=== PATIENT | female | born 1975 | race Caucasian/White ===

== ENCOUNTER 2017-08-26 17:22 | Emergency (ER) | payer SELFPAY ==
[2017-08-26] MEDS ORDERED: Methocarbamol TAB* 500 MG PO ONE (17:59)
[2017-08-26] MEDS ORDERED: oxyCODONE/Acetamin 5/325 MG* TAB PO ONE (17:59)
[2017-08-26] MEDS ORDERED: Dexamethasone TAB* 4 MG PO ONE (17:59)
[2017-08-26] MEDS ORDERED: Ketorolac INJ* 60 MG/2 ML VIAL IM ONE (17:59)
--- NOTE | 2017-08-26 18:35 | RAD ---
HISTORY: Fall, neck pain COMPARISONS: August 28, 2013 TECHNIQUE: Multiple contiguous axial CT scans were obtained of the cervical spine without intravenous contrast, with coronal and sagittal multiplanar reformations. FINDINGS: BRAIN: The visualized brain is unremarkable CENTRAL CANAL: Evaluation of the central canal is limited on CT technique; however, there is no obvious canalicular mass or epidural hemorrhage. ALIGNMENT: The alignment is normal, without subluxation or dislocation. VERTEBRAL BODIES: There is anterolateral marginal osteophyte formation at C4-C5 and C5-C6. JOINTS: There is uncovertebral osteophytosis most pronounced at C3-C4, C4-C5, C5-C6. MUSCULATURE: Unremarkable INTERVERTEBRAL DISCS: There is diffuse loss of intervertebral disc height. AXIAL IMAGES: On axial images, there is no osseous central canal stenosis. There is moderate bilateral neural foraminal narrowing at C4-C5 and to a lesser extent at C3-C4 and C5-C6. SOFT TISSUES: The visualized soft tissues of the neck are unremarkable. The prevertebral fat stripe is preserved. OTHER: None. IMPRESSION: DEGENERATIVE DISC DISEASE AND OSTEOARTHRITIS. NO ACUTE OSSEOUS INJURY TO THE CERVICAL SPINE.
--- NOTE | 2017-08-26 18:37 | RAD ---
HISTORY: Fall, back pain COMPARISONS: None TECHNIQUE: Multiple contiguous axial CT scans were obtained of the lumbar spine without intravenous contrast, with coronal and sagittal multiplanar reformations. FINDINGS: SPINAL CANAL: Evaluation of the central canal is limited on CT technique; however, there is no obvious canalicular mass or epidural hemorrhage. ALIGNMENT: The alignment is normal. VERTEBRAL BODIES: There is mild anterolateral marginal osteophyte formation. JOINTS: There is mild facet hypertrophic change. MUSCULATURE: Normal INTERVERTEBRAL DISCS: There is diffuse loss of intervertebral disc height throughout the spine. AXIAL IMAGES: T12-L1: There is no osseous neural foraminal narrowing or central canal stenosis. L1-L2: There is no osseous neural foraminal narrowing or central canal stenosis. L2-L3: There is no osseous neural foraminal narrowing or central canal stenosis. L3-L4: There is a mild disc bulge. There is no osseous neural foraminal area or central canal stenosis. L4-L5: There is broad-based disc bulge. There is bilateral facet hypertrophy. There is moderate bilateral neuroforaminal narrowing. There is mild narrowing of central canal. L5-S1: There is broad-based disc bulge. There is bilateral facet hypertrophy with marginal osteophyte formation at the neural foramina bilaterally. There is mild bilateral neural foraminal narrowing. There is no significant central canal stenosis. SOFT TISSUES: The visualized soft tissues of the abdomen are unremarkable. OTHER: There is osteoarthritis of the SI joints bilaterally. IMPRESSION: DEGENERATIVE DISC DISEASE AND OSTEOARTHRITIS DESCRIBED ABOVE. NO ACUTE OSSEOUS INJURY TO THE LUMBAR SPINE
--- NOTE | 2017-08-26 19:31 | ED ---
Back Pain - HPI Summary HPI Summary: 41F presents with back and neck pain today. She states she tripped and fell down the stairs. She has history of back pain at L4-S1 that is going to have surgery on shortly. She was taking percocet for pain but ran out. She has occasionally numbness and tingling down leg that is unchanged. She denies any saddle parethesia. She denies any loss of bowel or bladder. pain is 10/10. She hit her head but denies any LOC. She denies any nausea or vomiting. She is not on blood thinners. - History of Current Complaint Chief Complaint: EDBackInjuryPain Stated Complaint: BACK PAIN Time Seen by Provider: 08/26/17 17:51 Hx Last Menstrual Period: IUD Pain Intensity: 10 - Allergies/Home Medications Allergies/Adverse Reactions: Allergies Allergy/AdvReac Type Severity Reaction Status Date / Time No Known Allergies Allergy Verified 02/23/16 18:07 PMH/Surg Hx/FS Hx/Imm Hx Endocrine/Hematology History: Denies: Hx Diabetes Cardiovascular History: Denies: Hx Hypertension, Hx Pacemaker/ICD Musculoskeletal History: Reports: Hx Back Problems Sensory History: Denies: Hx Hearing Aid Neurological History: Reports: Other Neuro Impairments/Disorders - HX OF DEGENERATIVE DISK DISEASE Psychiatric History: Denies: Hx Panic Disorder Infectious Disease History: No Infectious Disease History: Denies: Traveled Outside the [place] in Last 30 Days - Family History Known Family History: Positive: Hypertension - Social History Alcohol Use: Occasionally Hx Substance Use: No Substance Use Type: Reports: None Substance Use Comment - Amount & Last Used: N Hx Tobacco Use: Yes Smoking Status (MU): Light Every Day Tobacco Smoker Type: Cigarettes Amount Used/How Often: 1 PPD Review of Systems Negative: Fever Negative: Chest Pain Negative: Shortness Of Breath Positive: Myalgia - back pain Positive: Headache All Other Systems Reviewed And Are Negative: Yes Physical Exam Triage Information Reviewed: Yes Vital Signs On Initial Exam: Initial Vitals Temp Pulse Resp BP Pulse Ox 99.6 F 82 20 138/67 96 08/26/17 17:41 08/26/17 17:41 08/26/17 17:41 08/26/17 17:41 08/26/17 17:41 Vital Signs Reviewed: Yes Appearance: Positive: Pain Distress Skin: Positive: Warm, Dry Head/Face: Positive: Normal Head/Face Inspection Eyes: Positive: Normal, EOMI, CHRISSY, Conjunctiva Clear ENT: Positive: Normal ENT inspection, Pharynx normal, TMs normal Respiratory/Lung Sounds: Positive: Clear to Auscultation, Breath Sounds Present Cardiovascular: Positive: Normal, RRR Abdomen Description: Positive: Nontender, Soft Bowel Sounds: Positive: Present Musculoskeletal: Positive: Other - tenderness cervical and lumbar back, good arm and leg strength, good pulses, capillary refill<2 secs, neg SLR Neurological: Positive: Sensory/Motor Intact, Alert, Oriented to Person Place, Time, CN Intact II-III - Anais Coma Scale Best Eye Response: 4 - Spontaneous Best Motor Response: 6 - Obeys Commands Best Verbal Response: 5 - Oriented Diagnostics - Vital Signs Vital Signs Temp Pulse Resp BP Pulse Ox 08/26/17 19:24 18 08/26/17 17:41 99.6 F 82 20 138/67 96 - Laboratory Lab Statement: Any lab studies that have been ordered have been reviewed, and results considered in the medical decision making process. - CT neck CT Interpretation: No Acute Changes - IMPRESSION: DEGENERATIVE DISC DISEASE AND OSTEOARTHRITIS. NO ACUTE OSSEOUS INJURY TO THE CERVICAL SPINE. CT Interpretation Completed By: Radiologist lumbar CT Interpretation: No Acute Changes - IMPRESSION: DEGENERATIVE DISC DISEASE AND OSTEOARTHRITIS DESCRIBED ABOVE. NO ACUTE OSSEOUS INJURY TO THE LUMBAR SPINE CT Interpretation Completed By: Radiologist Back Pain Course/Dx - Course Course Of Treatment: 41F presents with back and neck pain today. She states she tripped and fell down the stairs. She has history of back pain at L4-S1 that is going to have surgery on shortly. She was taking percocet for pain but ran out. She has occasionally numbness and tingling down leg that is unchanged. She denies any saddle parethesia. She denies any loss of bowel or bladder. pain is 10/10. She hit her head but denies any LOC. She denies any nausea or vomiting. She is not on blood thinners. on exam normal neuro exam. tenderness neck and lower back midline. CT neck and lumbar unchanged. will write for short script for naroctic as patient has appt with primary on . patient understand and agrees with plan. - Diagnoses Differential Diagnosis/HQI/PQRI: Positive: Fracture, Strain, Sprain Provider Diagnoses: Back pain, Fall, Neck pain Discharge - Discharge Plan Condition: Good Disposition: HOME Prescriptions: Cyclobenzaprine TAB* [Flexeril 10 MG TAB*] 10 mg PO TID PRN #9 tab PRN Reason: Pain Oxycodone W/ Acetaminophen [Percocet 7.5-325 mg (NF)] 1 tab PO Q8H PRN #9 tab MDD 3 PRN Reason: Pain Patient Education Materials: Back Pain (ED) Referrals: Eusebio Maxwell [Primary Care Provider] - Additional Instructions: You have been prescribed a short course of pain meds until can be seen by primary Take muscle relaxer three times a day Follow up with primary in 5 days Return to ED if develop any new or worsening symptoms
[2017-08-26 20:25] VITALS: BP 131/65
== END 2017-08-26 20:24 | disposition home or self-care (01) ==
LOC: ED 17:22
DX: M54.9 Dorsalgia, unspecified (principal); M50.30 Other cervical disc degeneration, unspecified cervical region; M47.812 Spondylosis without myelopathy or radiculopathy, cervical region; M51.36 Other intervertebral disc degeneration, lumbar region; M47.816 Spondylosis without myelopathy or radiculopathy, lumbar region; R20.0 Anesthesia of skin; F17.210 Nicotine dependence, cigarettes, uncomplicated
CPT/HCPCS: 72125; 72131; 96372; 99283; A9270-GY; J1885; J8540

== ENCOUNTER 2019-07-06 06:47 | Emergency (ER) | payer BC ==
[2019-07-06 06:51] VITALS: BP 139/102
--- NOTE | 2019-07-06 07:15 | ED ---
Throat Pain/Nasal Congestion - HPI Summary HPI Summary: Pt is a 43 y/o F presenting to the ED for a chief complaint of right ear pain since 07/04/19. Pt rates the right ear pain as 9/10 in severity. Pt reports decreased hearing in the right ear, neck pain, facial pain, and a cough that began on 07/05/19. Pt admits she felt she had a fever. Pt denies any chills, erythema of eyes, drainage from right ear, dental pain, nasal drainage, sore throat, CP, SOB, abdominal pain, N/V, dysuria, hematuria, edema, rash, or dizziness. Pt has taken ibuprofen 800 mg Q4H without relief of ehr symptoms. Pt admits a PMHx of back pain for which she previously took Tramadol. Pt denies any other PMHx. Pt denies taking any medications. Pt admits alcohol and tobacco use. Pt does not have a PCP at this time. - History of Current Complaint Chief Complaint: EDEarPain Hx Obtained From: Patient Onset/Duration: Sudden Onset, Lasting Days, Still Present Severity: Severe - 9/10 Associated Signs And Symptoms: Positive: Negative Cough: Nonproductive - Allergies/Home Medications Allergies/Adverse Reactions: Allergies Allergy/AdvReac Type Severity Reaction Status Date / Time No Known Allergies Allergy Verified 07/06/19 06:53 PMH/Surg Hx/FS Hx/Imm Hx Previously Healthy: Yes Endocrine/Hematology History: Denies: Hx Diabetes Cardiovascular History: Denies: Hx Hypertension, Hx Pacemaker/ICD Musculoskeletal History: Reports: Hx Back Problems Sensory History: Denies: Hx Legally Blind, Hx Deafness, Hx Hearing Aid Opthamlomology History: Denies: Hx Legally Blind EENT History: Denies: Hx Deafness Neurological History: Reports: Other Neuro Impairments/Disorders - HX OF DEGENERATIVE DISK DISEASE Psychiatric History: Denies: Hx Panic Disorder - Surgical History Surgical History: None Surgery Procedure, Year, and Place: None Infectious Disease History: No Infectious Disease History: Denies: Traveled Outside the [place] in Last 30 Days - Family History Known Family History: Positive: Hypertension - Social History Alcohol Use: Occasionally Hx Substance Use: No Substance Use Type: Reports: None Substance Use Comment - Amount & Last Used: None Hx Tobacco Use: Yes Smoking Status (MU): Light Every Day Tobacco Smoker Type: Cigarettes Amount Used/How Often: 1 PPD Review of Systems Positive: Fever - In vitals, 98.1 F. Negative: Chills Negative: Erythema Positive: Other - Negative drainage from right ear; positive right ear pain, decreased hearing from right ear. Negative: Dental Pain, Sore Throat, Nasal Discharge Negative: Chest Pain Positive: Cough. Negative: Shortness Of Breath Negative: Abdominal Pain, Vomiting, Nausea Negative: hematuria Positive: Myalgia - Neck and facial pain. Negative: Edema Negative: Rash Neurological: Other - Negative dizziness All Other Systems Reviewed And Are Negative: Yes Physical Exam - Summary Physical Exam Summary: Constitutional: Well-developed, Well-nourished, Alert. (-) Distressed Skin: Warm, Dry HENT: Normocephalic; Atraumatic. Right TM is bulging and erythematous. Eyes: Conjunctiva normal Neck: Musculoskeletal ROM normal neck. (-) JVD, (-) Stridor, (-) Tracheal deviation Cardio: Rhythm regular, rate normal, Heart sounds normal; Intact distal pulses; The pedal pulses are 2+ and symmetric. Radial pulses are 2+ and symmetric. (-) Murmur Pulmonary/Chest wall: Effort normal. (-) Respiratory distress, (-) Wheezes, (-) Rales Abd: Soft, (-) tenderness, (-) Distension, (-) Guarding, (-) Rebound Musculoskeletal: (-) Edema Lymph: (-) Cervical adenopathy Neuro: Alert, Oriented x3 Psych: Mood and affect Normal Psych: Mood and affect Normal Triage Information Reviewed: Yes Vital Signs On Initial Exam: Initial Vitals Temp Pulse Resp BP Pulse Ox 98.1 F 100 15 139/102 98 07/06/19 06:48 07/06/19 06:48 07/06/19 06:48 07/06/19 06:48 07/06/19 06:48 Vital Signs Reviewed: Yes Procedures - Sedation Patient Received Moderate/Deep Sedation with Procedure: No Diagnostics - Vital Signs Vital Signs Temp Pulse Resp BP Pulse Ox 07/06/19 06:48 98.1 F 100 15 139/102 98 - Laboratory Lab Statement: Any lab studies that have been ordered have been reviewed, and results considered in the medical decision making process. EENT Course/Dx - Course Course Of Treatment: Pt is a 43 y/o F presenting to the ED for a chief complaint of right ear pain since 07/04/19. Pt rates the right ear pain as 9/10 in severity. Pt reports decreased hearing in the right ear, neck pain, facial pain, and a cough that began on 07/05/19. Pt admits she felt she had a fever. Pt denies any chills, erythema of eyes, drainage from right ear, dental pain, nasal drainage, sore throat, CP, SOB, abdominal pain, N/V, dysuria, hematuria, edema, rash, or dizziness. Pt has taken ibuprofen 800 mg Q4H without relief of ehr symptoms. Pt admits a PMHx of back pain for which she previously took Tramadol. Pt denies taking any medications. Pt admits alcohol and tobacco use. On exam, right TM is bulging and erythematous. Pt will be discharged with a diagnosis of right otitis media and given a prescription for amoxicillin 500 mg PO, hydrocodone 1 tab PO, and naproxen 500 mg PO at [facility]. Follow up with [facility] in 2-3 days. - Diagnoses Provider Diagnoses: Right otitis media Discharge ED - Sign-Out/Discharge Documenting (check all that apply): Patient Departure - Discharge - Discharge Plan Condition: Stable Disposition: HOME Prescriptions: Amoxicillin PO (*) [Amoxicillin 875 MG (*)] 875 mg PO BID #14 tab HYDROcodone/ACETAMIN 5-325 MG* [[place] 5-325 TAB*] 1 tab PO Q6H PRN #8 tab MDD 4 PRN Reason: Pain - Severe Naproxen TAB* [Naprosyn 250 mg TAB*] 500 mg PO Q8H PRN #30 tab PRN Reason: Pain - Moderate Patient Education Materials: Ear Infection (ED) Forms: *School Release Referrals: Eusebio Maxwell [Primary Care Provider] - [facility] [Outside] Additional Instructions: Follow up with [facility] in 2-3 days. RETURN TO THE EMERGENCY DEPARTMENT FOR CHANGING OR WORSENING SYMPTOMS. - Billing Disposition and Condition Condition: STABLE Disposition: Home - Attestation Statements Document Initiated by Scribe: Yes Documenting Scribe: Melissa Davenport Provider For Whom Scribe is Documenting (Include Credential): Bennie Sosa MD Scribe Attestation: Melissa Lewis, scribed for Bennie Sosa MD on 07/06/19 at 0810. Scribe Documentation Reviewed: Yes Provider Attestation: The documentation as recorded by the scribe, Melissa Davenport accurately reflects the service I personally performed and the decisions made by me, Bennie Sosa MD Status of Scribe Document: Viewed
[2019-07-06] MEDS ORDERED: HYDROcodone/ACETAMIN 5-325 MG* 1 TAB PO ONE (07:21)
[2019-07-06] MEDS ORDERED: Amoxicillin PO (*) 500 MG CAP PO ONE (07:21)
[2019-07-06] MEDS ORDERED: Naproxen TAB* 250 MG PO ONE (07:21)
== END 2019-07-06 07:37 | disposition home or self-care (01) ==
LOC: ED 06:47
DX: H66.91 Otitis media, unspecified, right ear (principal); H92.01 Otalgia, right ear; F17.210 Nicotine dependence, cigarettes, uncomplicated
CPT/HCPCS: 99282; A9270-GY

== ENCOUNTER 2019-08-19 12:57 | Emergency (ER) | payer SELFPAY ==
[2019-08-19 13:03] VITALS: BP 135/93
--- NOTE | 2019-08-19 15:37 | ED ---
Lower Extremity - HPI Summary HPI Summary: Patient is a 43-year-old female who presents with left ankle pain. Patient inverted left ankle this morning and had immediate pain and swelling. States she can't move left ankle due to pain. Unable to walk. Has not taken supportive measure to alleviate symptoms. Had previous ankle fractures in left ankle 3-4 years ago. Denies numbness, tingling. Denies radiating pain. Denies knee/foot pain. Pain is rated 10/10. - History of Current Complaint Chief Complaint: EDExtremityLower Stated Complaint: POSS BROKEN ANKLE PER PT Hx Obtained From: Patient Hx Last Menstrual Period: IUD Mechanism Of Injury: Twisted Onset of Pain: Immediate Severity Currently: Severe Pain Intensity: 9 Timing: Constant Associated Signs And Symptoms: Positive: Swelling Aggravating Factor(s): Standing, Ambulation, Movement, Weight Bearing - Allergies/Home Medications Allergies/Adverse Reactions: Allergies Allergy/AdvReac Type Severity Reaction Status Date / Time No Known Allergies Allergy Verified 07/06/19 06:53 PMH/Surg Hx/FS Hx/Imm Hx Previously Healthy: Yes Endocrine/Hematology History: Denies: Hx Diabetes Cardiovascular History: Denies: Hx Hypertension, Hx Pacemaker/ICD Musculoskeletal History: Reports: Hx Back Problems Sensory History: Denies: Hx Legally Blind, Hx Deafness, Hx Hearing Aid Opthamlomology History: Denies: Hx Legally Blind Neurological History: Reports: Other Neuro Impairments/Disorders - HX OF DEGENERATIVE DISK DISEASE Psychiatric History: Denies: Hx Panic Disorder - Surgical History Surgery Procedure, Year, and Place: None - Immunization History Hx Pertussis Vaccination: No Immunizations Up to Date: Yes Infectious Disease History: No Infectious Disease History: Denies: Traveled Outside the [place] in Last 30 Days - Family History Known Family History: Positive: Hypertension - Social History Occupation: Employed Full-time Lives: With Family Alcohol Use: Occasionally Hx Substance Use: No Substance Use Type: Reports: None Substance Use Comment - Amount & Last Used: None Hx Tobacco Use: Yes Smoking Status (MU): Light Every Day Tobacco Smoker Type: Cigarettes Amount Used/How Often: 1 PPD Review of Systems Constitutional: Negative Negative: Fever, Chills Cardiovascular: Negative Negative: Palpitations, Chest Pain Respiratory: Negative Negative: Shortness Of Breath, Cough Positive: Arthralgia, Decreased ROM, Edema Skin: Negative Neurological: Negative Positive: Paresthesia, Numbness Psychological: Normal All Other Systems Reviewed And Are Negative: Yes Physical Exam Triage Information Reviewed: Yes Vital Signs On Initial Exam: Initial Vitals Temp Pulse Resp BP Pulse Ox 97.9 F 85 16 135/93 99 08/19/19 13:00 08/19/19 13:00 08/19/19 13:00 08/19/19 13:00 08/19/19 13:00 Vital Signs Reviewed: Yes Appearance: Positive: Well-Appearing, No Pain Distress, Well-Nourished Skin: Positive: Warm, Skin Color Reflects Adequate Perfusion, Dry Head/Face: Positive: Normal Head/Face Inspection ENT: Positive: Hearing grossly normal Neck: Positive: Supple, Nontender Respiratory/Lung Sounds: Positive: Clear to Auscultation, Breath Sounds Present. Negative: Rales, Rhonchi, Wheezes Cardiovascular: Positive: Normal, RRR, S1, S2. Negative: Rub, Tachycardia Abdomen Description: Positive: Nontender, Soft Bowel Sounds: Positive: Present Musculoskeletal: Positive: Limited @ - AROM limited due to pain, Abnormal @ - Tenderness lateral aspect of left ankle., Edema Left - Left ankle lateral, Other - No bony deformities, crepitus, step offs. Psychiatric: Positive: Normal, Affect/Mood Appropriate Procedures - Sedation Patient Received Moderate/Deep Sedation with Procedure: No Diagnostics - Vital Signs Vital Signs Temp Pulse Resp BP Pulse Ox 08/19/19 13:00 97.9 F 85 16 135/93 99 - Laboratory Lab Statement: Any lab studies that have been ordered have been reviewed, and results considered in the medical decision making process. Lower Extremity Course/Dx - Course Assessment/Plan: 43 year old female who presents with left ankle pain since this morning following an inversion injury. Lateral swelling without eccymosis, bony deformities noted. ROM limited due to pain. Neurovascularly intact. X-ray shows no acute fracture. Patient requesting gel splint and crutches. She will f/u with ortho if symptoms worsen. She is dx with ankle sprain. - Diagnoses Differential Diagnosis/HQI/PQRI: Positive: Contusion, Fracture (Closed), Sprain Provider Diagnoses: Ankle sprain Discharge ED - Sign-Out/Discharge Documenting (check all that apply): Patient Departure - Discharge Plan Condition: Stable Disposition: HOME Patient Education Materials: Ankle Sprain (ED) Referrals: Bijan Iglesias MD [Medical Doctor] - Session RPA-C,Eusebio [Primary Care Provider] - Additional Instructions: Ibuprofen 600mg three times daily Ice to the area as much as possible Crutches Follow up with ortho as needed Gel splint - wear this for at least 1 week - then switch to soft brace - Billing Disposition and Condition Condition: STABLE Disposition: Home
== END 2019-08-19 16:23 | disposition home or self-care (01) ==
LOC: ED 12:57
DX: S93.402A Sprain of unspecified ligament of left ankle, initial encounter (principal); X50.1XXA Overexertion from prolonged static or awkward postures, initial encounter; Y92.9 Unspecified place or not applicable; M89.8X7 Other specified disorders of bone, ankle and foot; M77.32 Calcaneal spur, left foot; M19.072 Primary osteoarthritis, left ankle and foot; F17.210 Nicotine dependence, cigarettes, uncomplicated
CPT/HCPCS: 99282